=== PATIENT | female | born 1975 | race Caucasian/White ===

== ENCOUNTER 2018-01-20 20:03 | Emergency (ER) | END 2018-01-20 23:43 | disposition home or self-care (01) ==

== ENCOUNTER 2018-08-20 21:45 | Emergency (ER) | payer MEDICAID ==
[~2018-08-20] VITALS: Wt 65.4 kg
[~2018-08-20 21:45] MED LIST: IBUP-1542 PO; ORPH100T PO
[2018-08-20 21:48] VITALS: BP 144/66; PULSE 115; RESP 19
[2018-08-20] MEDS ORDERED: ACETAMINOPHEN 500 MG TAB PO STA (22:02)
--- NOTE | 2018-08-20 22:02 | ERD ---
ER Documentation Chief Complaint Chief Complaint bib self, cc: sore throat x fever HPI This is a 42-year-old female who presents here in the emergency department with complaints of sore throat and fever for about 2 days. LMP: 07/28/2018. . Stated that she has 1 demise. Denies headache, head injury, loss of consciousness, dizziness, neck pain, neck stiffness, throat pain, difficulty swallowing, difficulty breathing lying flat, shoulder pain, chest pain, back pain, abdominal pain, nausea, vomiting, constipation, diarrhea, urinary symptoms, or possibility being , loss of bowel and bladder control, trauma, injury, falls, difficulty walking due to pain, numbness or tingling sensation, calf pain, recent travel, recent major surgery in the last 3 weeks, calf pain, recent long travel, recent exposure to any illness, recent antibiotic use in the last 3 months, fever, chills, seizures. Past medical history: Denies. Surgical history: Denies. Social: Denies smoking, use of alcoholic beverages, use of illegal drugs. ROS All systems reviewed and are negative except as per history of present illness. Medications Home Meds Active Scripts Prednisone* (Prednisone*) 20 Mg Tab, 60 MG PO DAILY for 4 Days, TAB Prov:BARBARA JEAN 08/20/18 Ondansetron Hcl* (Zofran*) 4 Mg Tablet, 4 MG PO Q8H PRN for NAUSEA AND/OR VOMITING, #30 TAB Prov:BARBARA JEAN 08/20/18 Guaifenesin-Dextromethorphan* (Robafen* DM) 100MG/10MG/5ML Liquid, 5 ML PO Q6H PRN for COUGH, #120 ML Prov:BARBARA JEAN 08/20/18 Acetaminophen* (Tylophen*) 500 Mg Capsule, 1 CAP PO Q6H PRN for PAIN AND OR ELEVATED TEMP, #20 CAP Prov:BARBARA JEAN 08/20/18 Ibuprofen* (Motrin*) 600 Mg Tab, 600 MG PO Q6H PRN for PAIN AND OR ELEVATED TEMP, #30 TAB Prov:BARBARA JEAN 08/20/18 Amoxicillin/Potassium Clav (Amox-Clav 875-125 mg Tablet) 875-125 mg Tab, 1 TAB PO BID for 10 Days, #20 TAB Prov:PASILABRENNENKLAR F 08/20/18 Orphenadrine Citrate (Norflex) 100 Mg Tablet.sa, 100 MG PO BID for 5 Days, TAB.SA Prov:NALINI ROSARIO 01/20/18 Ibuprofen* (Motrin*) 600 Mg Tab, 600 MG PO Q6, #30 TAB Prov:NALINI ROSARIO 01/20/18 Reported Medications [None] No Conflict Check 06/17/12 Allergies Allergies: Coded Allergies: No Known Drug Allergy (Verified Allergy, Unknown, 06/17/12) PMhx/Soc History of Surgery: No Anesthesia Reaction: No Hx Neurological Disorder: No Hx Respiratory Disorders: No Hx Cardiac Disorders: No Hx Psychiatric Problems: No Hx Miscellaneous Medical Probl: No Hx Alcohol Use: No Hx Substance Use: No Hx Tobacco Use: No Physical Exam Vitals Vital Signs Date Temp Pulse Resp B/P (MAP) Pulse Ox O2 O2 Flow FiO2 Time Delivery Rate 08/20/18 100.3 115 19 144/66 100 21:48 (92) Physical Exam Const: No acute distress Head: Atraumatic Eyes: Normal Conjunctiva ENT: Normal External Ears, Nose and Mouth. Bilateral ears: TMs are erythematous. No bleeding. No discharge. No hearing loss. No mastoid tenderness. Nose: There is frontal and maxillary sinus tenderness to palpation. Throat: Uvula is in midline and nondisplaced. Tonsils are +2 with redness and without exudates. Tolerating secretions. Patent airway. Speaks full and clear sentences. Neck: Full range of motion. No meningismus. No nuchal rigidity. No signs of meningeal irritation. Resp: Clear to auscultation bilaterally. No accessory muscle use in breathing. Cardio: Regular rate and rhythm, no murmurs Abd: Soft, non tender, non distended. Normal bowel sounds. No abdominal tenderness. Skin: No petechiae or rashes Back: No midline or flank tenderness Ext: No cyanosis, or edema Neur: Awake and alert. No neurological deficits. Psych: Normal Mood and Affect Results 24 hrs Current Medications Medications Dose Sig/Daniela Start Time Status Last (Trade) Ordered Route PRN Stop Time Admin Dose Reason Admin Ibuprofen 800 mg ONCE ONCE 08/20/18 DC 08/20/18 (Motrin) PO 22:30 22:18 08/20/18 22:31 1,000 mg ONCE STAT 12/28/18 DC 08/20/18 Acetaminophen PO 22:02 22:18 (Tylenol 08/20/18 Tab) 22:03 Ceftriaxone 1 gm ONCE ONCE 08/20/18 DC 08/20/18 Sodium IM 22:30 22:18 (Rocephin) 08/20/18 22:31 125 mg ONCE ONCE 08/20/18 DC 08/20/18 Methylprednis IM 22:30 22:18 olone Sodium 08/20/18 Succinate 22:31 (Solu-Medrol) Ondansetron 4 mg ONCE ONCE 08/20/18 DC HCl (Zofran PO 22:30 Tab) 08/20/18 22:30 Ondansetron 4 mg ONCE STAT 08/20/18 DC 08/20/18 HCl (Zofran ODT 22:17 22:25 Odt) 08/20/18 22:18 Procedures/MDM Diagnostic tests: Clinical exam. Treatment: Ceftriaxone IM. Solu-Medrol IM. Zofran ODT. Motrin. Tylenol. P.o. challenge. Re-evaluation: Temperature responded to antipyretic medication. No episode of emesis. No difficulty swallowing. No drooling. No nuchal rigidity. No signs of meningeal irritation. Differential diagnosis I have low suspicion for sepsis, mastoiditis, meningitis, peritonsillar abscess, airway obstruction. Final diagnosis: Sinusitis. Exudative tonsillitis. Pharyngitis. Otitis media. Prescription: Augmentin. Motrin. Tylenol. Prednisone. Zofran. Tessalon Perles. Follow-up with PCP in the next 24-48 hours. Come back here in the emergency department for any new symptoms or any worsening symptoms. All questions and concerns were answered. Patient and family members verbalized understanding and agreed with plan of care. Hemodynamically stable on discharge. Departure Diagnosis: Primary Impression: Sinusitis Additional Impressions: Exudative tonsillitis Pharyngitis Otitis media Cough Condition: Stable Additional Instructions: Follow-up with PCP in the next 24-48 hours. Come back here in the emergency department for any new symptoms or any worsening symptoms. BARBARA JEAN Aug 20, 2018 22:02
[2018-08-20] MEDS ORDERED: ONDANSETRON (ODT) 4 MG TAB ODT STA (22:17)
[2018-08-20] MEDS ORDERED: IBUP-1542 PO (22:28)
[2018-08-20] MEDS ORDERED: ACET500C5 PO (22:28)
[2018-08-20] MEDS ORDERED: AMOX1TAB10 PO (22:28)
[2018-08-20] MEDS ORDERED: PRED20TA PO (22:29)
[2018-08-20] MEDS ORDERED: GUAI-227 PO (22:29)
[2018-08-20] MEDS ORDERED: ONDA4TAB8 PO (22:29)
[2018-08-20] MEDS ORDERED: CEFTRIAXONE 1 GM INJ IM ONE (22:30)
[2018-08-20] MEDS ORDERED: METHYLPREDNISOLONE 125 MG INJ IM ONE (22:30)
[2018-08-20] MEDS ORDERED: ONDANSETRON 4 MG TAB PO ONE (22:30)
[2018-08-20] MEDS ORDERED: IBUPROFEN 800 MG TAB PO ONE (22:30)
== END 2018-08-20 22:45 | disposition home or self-care (01) ==
LOC: FTE 21:45
DX: J32.9 Chronic sinusitis, unspecified (principal); J03.90 Acute tonsillitis, unspecified; J02.9 Acute pharyngitis, unspecified; H66.93 Otitis media, unspecified, bilateral
CPT/HCPCS: 96372; J0696; J2930; Z7502; Z7610